=== PATIENT | female | born 1945 | race Caucasian/White ===

== ENCOUNTER 2023-02-25 10:37 | Emergency (ER) | payer MEDICARE ==
[~2023-02-25] VITALS: Ht 165.1 cm; Wt 77.1 kg
[2023-02-25] MEDS ORDERED: VIBRAMYCIN100 MG PO (11:58)
[2023-02-25] MEDS ORDERED: PREDNISONE20 M1 PO (11:58)
[2023-02-25] MEDS ORDERED: AMOX-CLAV 875-1 EACH PO (11:58)
== END 2023-02-25 12:43 | disposition home or self-care (01) ==
LOC: ED 10:37
DX: J40 Bronchitis, not specified as acute or chronic (principal); H66.93 Otitis media, unspecified, bilateral; Z91.041 Radiographic dye allergy status